=== PATIENT | male | born 1965 | race African-American/Black ===

== ENCOUNTER → 2017-01-08 | Outpatient (CLI) | payer OTHER ==
[~2017-01-08] MED LIST: FRRG PO; GLC/500 PO; LCTL45 PO; MRLP17 PO; PANT40TA PO; PROP10TA7 PO; XFX550 PO
[2017-01-08 09:39] LABS: MEAN CORPUSCULAR HEMOGLOBIN 30.8 pg (25-34); MEAN CORPUSCULAR HGB CONC 34.2 g/dl (32-36); MEAN PLATELET VOLUME 11.7 fL (7.4-10.4); PLATELET COUNT 102 K/uL (130-400); RED BLOOD COUNT 4.78 M/uL (4.7-6.1); WHITE BLOOD COUNT 5.29 K/uL (4.8-10.8)
[2017-01-08 09:52] LABS: INR 1.1 (0.9-1.1); PARTIAL THROMBOPLASTIN RATIO 1.1
== END | disposition home or self-care (01) ==
LOC: C.LAB 08:36
PROVIDERS: ATTEND Internal Medicine Gastroenterology
DX: B18.2 Chronic viral hepatitis C (principal); K74.60 Unspecified cirrhosis of liver

== ENCOUNTER → 2017-02-05 | Outpatient (CLI) | payer OTHER ==
[~2017-02-05] MED LIST changes: +INSDGI SC; +LISI40TA PO; +PROP40TA5 PO; +PRT/20 PO
--- NOTE | 2017-02-05 12:27 | DIAGNOSTIC IMAGING REPORT ---
ABDOMINAL ULTRASOUND, RIGHT UPPER QUADRANT HISTORY: GALLSTONES. COMPARISON: Abdominal ultrasound 09/22/2015. FINDINGS: Pancreas: The pancreatic head and tail are obscured by overlying bowel gas. The remaining portions of the pancreas are within normal limits. Liver: Slightly nodular contour to the liver consistent with cirrhosis. Trace perihepatic ascites. No hepatic masses identified. Gallbladder: No gallbladder wall thickening. No gallstones. 7 mm echogenic nonmobile nodule within the gallbladder consistent with a polyp. CBD: 5 mm. Right kidney: No hydronephrosis. Echogenic consistent with medical renal disease. IMPRESSION: 1. Cirrhotic liver with trace perihepatic ascites. 2. A 7 mm echogenic nonmobile nodule within the gallbladder consistent with a polyp. No definite gallstones. Electronically signed by: Jeff Walsh M.D. 02/05/2017 12:26 PM Dictated Date/Time: 02/05/2017 12:23 PM
== END | disposition home or self-care (01) ==
LOC: C.ULTRBC 09:47
PROVIDERS: ATTEND Family Medicine
DX: K56.3 Gallstone ileus (principal); K74.60 Unspecified cirrhosis of liver